=== PATIENT | female | born 1975 ===

== ENCOUNTER 2018-01-24 09:45 | Emergency (ER) | payer MEDICAID ==
[2018-01-24 09:50] VITALS: TEMP 98.7; O2SAT 100
[2018-01-24] MEDS ORDERED: Naproxen 500 MG TAB PO STA (10:17)
[2018-01-24] MEDS ORDERED: Naproxen 500 MG TAB PO ONE (10:24)
--- NOTE | 2018-01-24 11:53 | ED PDOC ---
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 Patient reports that yesterday the pain became "unbearable" and prevented her from being able to sleep through the night. Patient states she took 2 pills of Advil around 18:00 with minimal relief. Patient has had mild back pain since childhood but no trauma, infection, or other accident to cause pain. She denies numbness, tingling, loss of strength in extremities, urinary symptoms, numbness to thighs , swelling, chest pain, or shortness of breath. Pain is localized to upper back but not involving neck. Her last normal menstrual period was January 07. PMD: Norma Coreas Past Medical History Reviewed: Historical Data, Nursing Documentation, Vital Signs Vital Signs: Last Vital Signs Temp 98.7 F 01/24/18 09:57 Pulse 77 01/24/18 09:57 Resp 17 01/24/18 09:57 BP 98/51 L 01/24/18 09:57 Pulse Ox 100 01/24/18 09:57 - Medical History PMH: No Chronic Diseases Denies: Migraine - Surgical History Surgical History: - Family History Family History: States: Unknown Family Hx - Home Medications Home Medications: Ambulatory Orders Medication Instructions Recorded Metoclopramide HCl [Reglan] 10 mg PO Q8 PRN #30 tablet 07/06/15 Naproxen [Naprosyn] 500 mg PO BID PRN #30 tab 07/06/15 Cyclobenzaprine [Cyclobenzaprine 10 mg PO BID #4 tab 01/24/18 HCl] Naproxen 500 mg PO BID #14 tab 01/24/18 - Allergies Allergies/Adverse Reactions: Allergies Allergy/AdvReac Type Severity Reaction Status Date / Time No Known Allergies Allergy Verified 07/06/15 18:04 Review of Systems ROS Statement: Except As Marked, All Systems Reviewed And Found Negative Constitutional: Negative for: Fever Cardiovascular: Negative for: Chest Pain, Edema Respiratory: Negative for: Shortness of Breath Genitourinary Female: Negative for: Dysuria, Frequency, Incontinence Musculoskeletal: Positive for: Back Pain. Negative for: Neck Pain Neurological: Negative for: Numbness Physical Exam - Reviewed Nursing Documentation Reviewed: Yes Vital Signs Reviewed: Yes - Physical Exam Appears: Positive for: Non-toxic, No Acute Distress Head Exam: Positive for: ATRAUMATIC, NORMOCEPHALIC Skin: Positive for: Normal Color, Warm, Dry Eye Exam: Positive for: EOMI, Normal appearance, PERRL Neck: Positive for: Normal, Painless ROM, Supple Cardiovascular/Chest: Positive for: Regular Rate, Rhythm. Negative for: Murmur Respiratory: Positive for: Normal Breath Sounds. Negative for: Respiratory Distress Gastrointestinal/Abdominal: Positive for: Normal Exam, Soft. Negative for: Tenderness Back: Positive for: Other (mild tenderness to palpation paraspinal over scapula bilaterally). Negative for: Vertebral Tenderness (spinal tenderness) Extremity: Positive for: Normal ROM. Negative for: Pedal Edema, Deformity Neurologic/Psych: Positive for: Alert, Oriented, Other (full strength all extremities). Negative for: Motor/Sensory Deficits - ECG O2 Sat by Pulse Oximetry: 100 (RA) Pulse Ox Interpretation: Normal Medical Decision Making Medical Decision Making: Time: 10:11 Impression: Musculoskeletal pain w/o spinal involvement Initial Plan: --Flexeril --Naproxen Time: 11:44 Pain fully resolved with naproxen and flexeril. Patient tolerated medication without side effects. Patient is to be discharged home. Side effects of drowsiness associated with medication was discussed with patient, advised to not drive or do dangerous activities. Upon provider reevaluation patient is feeling better, is medically stable, and requires no further treatment in the ED at this time. Counseling was provided and all questions were answered regarding diagnosis and need for follow up with PMD There is agreement to discharge plan. Return if symptoms persist or worsen. ----- Scribe Attestation: Documented by Gerald Camron, acting as a scribe for Gali Arriola MD. Provider Scribe Attestation: All medical record entries made by the Scribe were at my direction and personally dictated by me. I have reviewed the chart and agree that the record accurately reflects my personal performance of the history, physical exam, medical decision making, and the department course for this patient. I have also personally directed, reviewed, and agree with the discharge instructions and disposition. Disposition - Clinical Impression Clinical Impression: Back pain - Disposition Referrals: norma coreas [Other] Disposition Time: 12:30 Condition: IMPROVED Additional Instructions: Take Naproxen twice per day if you have back pain. Take Flexeril twice per day but if you take Flexeril, do not drive or perform complicated or dangerous activities. Follow up with primary medical doctor if symptoms do not improve. Return to the emergency department if you develop weakness, numbness, or other new symptoms. Prescriptions: Cyclobenzaprine [Cyclobenzaprine HCl] 10 mg PO BID #4 tab Naproxen 500 mg PO BID #14 tab Instructions: Upper Back Pain (DC) Forms: [employer] (Eth[place]ian) Print Language: FAROESE
[2018-01-24 12:39] VITALS: BP 124/67; PULSE 55; RESP 16
== END 2018-01-24 13:00 | disposition home or self-care (01) ==
LOC: H.ER 09:45
DX: M54.9 Dorsalgia, unspecified (principal)